=== PATIENT | male | born 1950 | race Caucasian/White ===

== ENCOUNTER → 2018-06-01 | Outpatient (CLI) | payer MEDICARE, BC ==
[~2018-06-01] MED LIST: ASPIRIN 81M81 MG/TA2 PO; LEVAQUIN 5500 MG/TA1 PO; NORCO 325 MG-51 TAB PO; PLAVIX 75MG TAB75 MG PO; PRAVACHOL 40MG40 MG PO; VASOTEC 10M10 MG/TAB PO; ZOFRAN 4MG T4 MG/TAB PO
[2018-06-01 16:02] LABS: BASO % 0.5 % (0.0-2.0); EOS # 0.2 (0.0-0.7); EOS % 2.9 % (0-4.0); GRAN # 3.3 (1.4-6.5); GRAN % 50.1 % (42.2-75.2); HEMATOCRIT 43.7 % (42.0-52.0); HEMOGLOBIN 14.9 g/dl (13.5-18.0); LYMPH # 2.3 (1.2-3.4); LYMPH % 34.4 % (20.0-51.0); MEAN CELL VOLUME 95 fl (80.0-100.0); MEAN CORPUSCULAR HEMOGLOBIN 32 pg (27.0-31.0); MEAN CORPUSCULAR HGB CONC 34 g/dl (33.0-37.0); MEAN PLATELET VOLUME 9.4 fl (7.4-10.4); MONO # 0.8 (0.1-0.6); MONO % 11.5 % (1.7-9.3); PLATELET COUNT 401 K/mm3 (130-400); REDCELL DISTRIBUTION WIDTH-CV 12.6 % (11.5-14.5)
== END ==
LOC: ZCOL.LAB 15:14
PROVIDERS: Family Medicine
DX: I10 Essential (primary) hypertension (principal); R79.89 Other specified abnormal findings of blood chemistry

== ENCOUNTER 2018-10-01 06:56 | Day surgery (SDC) | payer MEDICARE, BC ==
[2018-10-01] VITALS (13 sets, daily range): BP systolic 101–133; BP diastolic 62–76; PULSE 72–81; TEMP 98.6
[~2018-10-01] VITALS: Ht 185.4 cm; Wt 92.8 kg
[2018-10-01 07:26] LABS: HEMATOCRIT 41.3 % (42.0-52.0); HEMOGLOBIN 14.4 g/dl (13.5-18.0); MEAN CELL VOLUME 92 fl (80.0-100.0); MEAN CORPUSCULAR HEMOGLOBIN 32 pg (27.0-31.0); MEAN CORPUSCULAR HGB CONC 35 g/dl (33.0-37.0); PLATELET COUNT 376 K/mm3 (130-400); RED BLOOD COUNT 4.51 M/mm3 (4.20-5.60); REDCELL DISTRIBUTION WIDTH-CV 12.3 % (11.5-14.5)
[2018-10-01 07:31] LABS: INR 0.9 (0.8-3.0)
[2018-10-01 07:39] LABS: CALCIUM 9.4 mg/dL (8.4-10.2); CREATININE, serum 0.77 (0.66-1.25); POTASSIUM 4.9 mmol/L (3.4-5.0)
[2018-10-01] MEDS ORDERED: NORVASC 10MG10 MG PO (08:42)
[2018-10-01] MEDS ORDERED: EPA FISH OIL1 SGL PO (08:43)
[2018-10-01] MEDS ORDERED: MASON NATURAL500 MG PO (08:44)
--- NOTE | 2018-10-01 09:10 | NUR ---
SEE MERGE REPORTS FOR MEDICATION ADMINISTRATION TIMES AND INTRA/POST SEDATION ASSESSMENTS.
[2018-10-01] MEDS ORDERED: TOPROL XL 25MG25 MG PO (09:43)
[2018-10-01] MEDS ORDERED: IMDUR 30MG30 MG/TAB PO (09:44)
--- NOTE | 2018-10-01 14:53 | NUR ---
Discharge instructions given to pt.Pt verbalizes understanding.INT removed,catheter tip intact.Pt escorted out via wheelchair by this nurse.
== END 2018-10-01 14:57 | disposition home or self-care (01) ==
LOC: COL.CAR 06:56
PROVIDERS: Internal Medicine Cardiovascular Disease
DX: I25.10 Atherosclerotic heart disease of native coronary artery without angina pectoris (principal); R94.39 Abnormal result of other cardiovascular function study
CPT/HCPCS: C1760; C1894; J1644; J2250; J3010; Q9967

== ENCOUNTER → 2020-10-30 | Outpatient (CLI) | payer MEDICARE, BC ==
[~2020-10-30] MED LIST changes: +EPA FISH OIL1 SGL PO; +IMDUR 30MG30 MG/TAB PO; +MASON NATURAL500 MG PO; +NORVASC 10MG10 MG PO; +TOPROL XL 25MG25 MG PO
== END ==
LOC: COL.RAD 10:00
DX: Z12.2 Encounter for screening for malignant neoplasm of respiratory organs (principal); Z87.891 Personal history of nicotine dependence

== ENCOUNTER 2021-07-15 18:33 | Inpatient (IN) | payer MEDICARE, BC ==
[~2021-07-15] VITALS: Ht 185.4 cm; Wt 88.0 kg
[~2021-07-15 18:33] MED LIST changes: +CRESTOR 10MG10 MG PO; +FLONASE NASAL S16 GM NS
--- NOTE | 2021-07-15 18:35 | NUR ---
PATIENT ADMITED INTO ROOM [facility] FROM [facility]. PATIENT HAD A SCHEDULED LUNG BX AND HAD A POST-OP PNEUMO. PATIENT STABLE AND STAYING OVER NIGHT FOR OBS. NO C/O SOA. 02 @ 2L PER NC WITH SATS IN UPPER 90'S. PCT AT BEDSIDE TO OBTAIN VITALS. PATIENT INDEPENDENT IN ROOM AND SITTING UP IN BEDSIDE CHAIR. RIGHT AC IV TO INT. NO OTHER NEEDS. 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
--- NOTE | 2021-07-15 19:00 | NUR ---
Bedside shift report recieved, assumed care for night stocker. Admission assessment complete. A&Ox3. Denies pain/nausea/shortness of breath. VS stable. O2@2L/NC with adequate saturations. Right AC INT flushes without difficulty. Plan fo care discussed for this shift to include meds/monitoring VS/reporting shortness of breath/increased pain. Verbalizes understanding. Call light in reach. Will monitor.
[2021-07-15 20:02] VITALS: BP 161/80; PULSE 83; TEMP 97.6
[2021-07-16] VITALS (8 sets, daily range): BP systolic 101–149; BP diastolic 52–78; PULSE 65–105; TEMP 97.5–98.1
--- NOTE | 2021-07-16 00:30 | NUR ---
Restomg eyes closed. No s/s of discomfort noted.
--- NOTE | 2021-07-16 05:02 | NUR ---
Had an uneventful night. Denied pain/nausea/shortness of breath. VS remained stable. O2@2L/NC with adequate saturation. TELE reports SR. Right AC INT flushes well. Denies current needs. Call light in reach. Will monitor.
--- NOTE | 2021-07-16 08:00 | NUR ---
PATIENT IS A&O AND SITTING UP IN BEDSIDE CHAIR WITH BREAKFAST TRAY. NO C/O N/V, SOA AT REST, OR PAIN. PATIENT DOES REPORTS SOME SOA WITH ACTIVITY. 02 AT 2L PER NC WITH SATS AT 98%. PATIENT PLACED ON RA FOR PENDING DISCHARGE. O2 SATS AT 95% ON RA, WILL MONITOR. NOTED RIGHT LOWER LOBE DEMINISHED. PT/OT CONSULTED. INDEPENDENT IN ROOM. RIGHT AC IV TO INT. HEAD TO TOE ASSESSMENT COMPLETE. AM MEDS GIVEN. PATIENT DOES REPORT DRINKING 8 BEER/DAY AND IS HOPING TO DISCHARGE TODAY.
--- NOTE | 2021-07-16 09:55 | NUR ---
PER , PATIENT WILL REQUIRE CHEST TUBE. TO PLACE CHEST TUBE AROUND NOON, SUPPLIES IN ROOM. PATIENT VERBALIZED UNDERSTANDING. PATIENT ALSO PLACED BACK ON 2L PER NH WITH SATS IN MID 90'S. PATIENT SITTING UP IN BEDSIDE CHAIR IN NO DISTRESS. WILL MONITOR
--- NOTE | 2021-07-16 12:53 | NUR ---
G[employer]ler met with patient to discuss discharge planning. Patient lives in [place] with his , Dia (ph#[phone]) and sees Valetnina Ayala APRN for primary care. Patient recently switched primary care to the [facility] as it's closer to home. Patient obtains medications from [facility] and reports there are some medications for COPD that he cannot afford, therefor does not take. Patient uses a cpap at home and states he was once set up for home oxygen, but sent it back as he does not think he needs it. Patient uses no other DME and is independent with [facility]. Patient does not have Advance Directives and is not interested in setting up [facility] at this time. Patient to have chest tube placed so SW discussed home health services for nursing. 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 Patient felt he and his could manage the chest tube. Patient plans to return home at time of discharge and is looking forward to doing so. Discharge Plan: Home
--- NOTE | 2021-07-16 13:00 | NUR ---
AT BEDSIDE TO PLACE RIGHT CHEST TUBE, CONSENT ON CHART. CHEST TUBE PLACE TO 20 OF SUCTION. PATIENT TOLERATED WELL. RADIOLOGY AT BEDSIDE TO OBTAIN POST CXR. PATIENT NOW SITTING UP IN BEDSIDE CHAIR WITH LUNCH TRAY.
--- NOTE | 2021-07-16 20:00 | NUR ---
Bedside shift report received, assumed care for clinical education specialist. Assessment complete. A&Ox3. Denies pain/nausea/shortness of breath. VS stable. O2@2L/NC per order. TELE reporting SR. Right side chest tube to water seal-20cm of suction with reddish output. Plan of care discussed for this shift to include meds/pain control/chest tube/calling for questions/concerns. Verbalizes understanding/denies needs. Call light in reach. Will monitor.
--- NOTE | 2021-07-16 20:00 | NUR ---
Bedside shift report received, assumed care for shift foreman. Assessment complete. A&Ox3. Denies pain/nausea/shortness of breath. VS stable. O2@2L/NC per order. TELE reporting SR. Right side chest tube to 20cm of suction with reddish output. Plan of care discussed for this shift to include meds/pain control/chest tube/calling for questions/concerns. Verbalizes understanding/denies needs. Call light in reach. Will monitor.
--- NOTE | 2021-07-17 00:09 | NUR ---
Resting eyes closed. No s/s of pain or discomfort noted. Will monitor.
[2021-07-17 03:39] VITALS: BP 116/57; PULSE 72; TEMP 97.9
--- NOTE | 2021-07-17 03:45 | NUR ---
Chest tube placed to water seal at this time.
--- NOTE | 2021-07-17 05:30 | NUR ---
Had an uneventful night. Denied pain/nausea/shortness of breath. VS remained stable. Chest tube to water seal at 0400. Denied current needs. Call light in reach. Will monitor.
--- NOTE | 2021-07-17 06:38 | NUR ---
Report given to PINO Kaba.
[2021-07-17 06:53] VITALS: BP 138/72; PULSE 78
--- NOTE | 2021-07-17 07:10 | NUR ---
Assessment completed and documented in pt chart. Lungs are CTA bilat with unlabored breathing and no shortness of air. Chest tube noted to R chest - not connected to suction at this time. Dressing to R chest is clean and dry but needs reinforced. Will get new 4x4 and reinforce. INT in RAC is intact with a clean and dry dressing. Positive BS in all 4 quadrants, no c/o pain, nausea or constipation. Pt stated last BM was 3-8. Pt is independent in room and ambulating with a steady gait. Denies any needs at this time.
[2021-07-17 07:36] LABS: ALBUMIN 3.9 gm/dL (3.4-4.8); CREATININE, serum 0.75 mg/dL (0.72-1.25); MAGNESIUM 2.2 mg/dL (1.6-2.6); PHOSPHOROUS 2.6 mg/dL (2.3-4.7); POTASSIUM 4.3 mmol/L (3.5-4.5)
[2021-07-17 07:37] LABS: BASO % 0.6 % (0.0-2.0); EOS # 0.3 K/mm3 (0.0-0.7); EOS % 3.8 % (0.0-4.0); GRAN # 4.2 K/mm3 (1.4-6.5); HEMOGLOBIN 15.5 g/dl (13.5-18.0); LYMPH # 1.5 K/mm3 (1.2-3.4); LYMPH % 22.3 % (20.0-51.0); MEAN CELL VOLUME 93 fl (80.0-100.0); MEAN CORPUSCULAR HEMOGLOBIN 32 pg (27-31); MEAN CORPUSCULAR HGB CONC 34 g/dl (33.0-37.0); MEAN PLATELET VOLUME 9.7 fl (7.4-10.4); MONO # 0.8 K/mm3 (0.1-0.6); MONO % 11.7 % (1.7-9.3); PLATELET COUNT 367 K/mm3 (130-400); RED BLOOD COUNT 4.83 M/mm3 (4.20-5.60); REDCELL DISTRIBUTION WIDTH-CV 12.3 % (11.5-14.5)
[2021-07-17 09:53] VITALS: BP 102/69; PULSE 84
[2021-07-17 10:52] VITALS: BP 95/58; PULSE 78; TEMP 97.9
--- NOTE | 2021-07-17 12:16 | NUR ---
Discharge orders discussed with patient, instructed to follow up with PCP and Pulm. in 2 weeks, instructed on no strenuous exertion for 1 week, instructed to leavge dressing in place for 24 hours and can then shower at that time, insrtucted to return to ED if starts having chest pain or dyspnea, IV and tele removed, leaving with his , he is ambulatory and I escorted him out the door
== END 2021-07-17 12:19 | disposition home or self-care (01) | DRG 201 ==
LOC: SURG 18:33
PROVIDERS: ADMIT Internal Medicine
PROC: 0W9930Z Drainage of Right Pleural Cavity with Drainage Device, Percutaneous Approach (ICD-10-PCS; principal; 2021-07-16)
DX: J95.811 Postprocedural pneumothorax (principal); I10 Essential (primary) hypertension; I25.10 Atherosclerotic heart disease of native coronary artery without angina pectoris; J44.9 Chronic obstructive pulmonary disease, unspecified; I73.9 Peripheral vascular disease, unspecified; R91.1 Solitary pulmonary nodule; Y84.8 Other medical procedures as the cause of abnormal reaction of the patient, or of later complication, without mention of misadventure at the time of the procedure; Z86.718 Personal history of other venous thrombosis and embolism; Z85.828 Personal history of other malignant neoplasm of skin; Z95.5 Presence of coronary angioplasty implant and graft; Z87.891 Personal history of nicotine dependence; Z79.82 Long term (current) use of aspirin
CPT/HCPCS: OP; 99233-AI; 99239; G0378

== ENCOUNTER → 2021-08-26 | Outpatient (CLI) | payer MEDICARE, BC | LOC: COL.PUL 10:46 | DX: C34.2 Malignant neoplasm of middle lobe, bronchus or lung (principal) ==

== ENCOUNTER → 2022-01-06 | Outpatient (CLI) | payer MEDICARE, BC ==
[~2022-01-06] VITALS: Ht 185.4 cm; Wt 83.0 kg
[2022-01-06] VITALS (10 sets, daily range): BP systolic 108–136; BP diastolic 67–78; PULSE 65–76; TEMP 97.4
[~2022-01-06] MED LIST changes: +FLOMAX 0.40.4 MG/CAP PO
--- NOTE | 2022-01-06 11:20 | NUR ---
pt positioned in CT scanner, waiting on
--- NOTE | 2022-01-06 11:30 | NUR ---
Dr Zacarias starting on procedure
--- NOTE | 2022-01-06 11:44 | NUR ---
specimans obtained from left kidney, put in formulin, bandaid over site, pt was scanned and again and then in W/C
--- NOTE | 2022-01-06 14:27 | NUR ---
pt discharged amb. to lobby for ride
== END ==
LOC: COL.RAD 01-02 13:00
DX: N28.89 Other specified disorders of kidney and ureter (principal)
CPT/HCPCS: Q9967